=== PATIENT | male | born 1970 | race African-American/Black ===

== ENCOUNTER 2017-12-09 05:13 | Observation (INO) | payer OTHER ==
[~2017-12-09] VITALS: Ht 193 cm; Wt 113.7 kg
[2017-12-09 06:03] LABS: BASOPHIL % 0.4 % (0-2); PLATELET COUNT 210 x10^3mcL (130-400); RED CELL DISTRIBUTION WIDTH 13.2 % (11.5-14.5)
[2017-12-09 06:11] LABS: CALCIUM 8.9 mg/dL (8.5-10.1); CARBON DIOXIDE 30.3 mmol/L (21-32); CHLORIDE SERUM 106 mmol/L (98-107); CREATININE SERUM 1.1 mg/dL (0.7-1.3); GFR1 > 60 mL/min; GLUCOSE SERUM 102 mg/dL (74-106); POTASSIUM SERUM 3.6 mmol/L (3.5-5.1); SODIUM SERUM 140 mmol/L (136-145)
[2017-12-09 06:17] LABS: ALBUMIN 3.5 g/dL (3.4-5.0); ALKALINE PHOSPHATASE 85 U/L (46-116); ALT/SGPT 24 U/L (16-63); AST/SGOT 17 U/L (15-37); BILIRUBIN TOTAL 1.3 mg/dL (0.20-1.00); TOTAL PROTEIN, SERUM 6.8 g/dL (6.4-8.2)
[2017-12-09] MEDS ORDERED: BENAZEPRIL HYDR20 M1 PO (06:48)
[2017-12-09 07:56] VITALS: BP 132/69
[2017-12-09 09:49] LABS: CHOLESTEROL/HDL RATIO 3.3; MAGNESIUM 2.3 mg/dL (1.8-2.4); PHOSPHOROUS 2.7 mg/dL (2.5-4.9)
[2017-12-09 10:07] LABS: FREE T4 1.01 ng/dL (0.76-1.46); T4(THYROXINE) 6.4 ug/dL (4.7-13.3)
[2017-12-09 10:45] VITALS: BP 117/75
[2017-12-09 12:51] LABS: microscopic required? NO
[2017-12-09 13:16] LABS: urine erythrocyte NEGATIVE (NEGATIVE)
[2017-12-09 13:23] LABS: AMPHETAMINE QUAL UR NONE DETECTED (NEG <=1000)
[2017-12-09 13:39] VITALS: BP 120/72
[2017-12-09 17:06] VITALS: BP 122/72
[2017-12-09 21:02] VITALS: BP 132/73
[2017-12-10 05:53] VITALS: BP 131/91
[2017-12-10 06:21] LABS: BASOPHIL % 0.6 % (0-2); PLATELET COUNT 201 x10^3mcL (130-400); RED CELL DISTRIBUTION WIDTH 13.5 % (11.5-14.5)
[2017-12-10 06:27] LABS: CALCIUM 8.6 mg/dL (8.5-10.1); CARBON DIOXIDE 28.6 mmol/L (21-32); CHLORIDE SERUM 108 mmol/L (98-107); CREATININE SERUM 0.9 mg/dL (0.7-1.3); GFR1 > 60 mL/min; GLUCOSE SERUM 90 mg/dL (74-106); PHOSPHOROUS 3.3 mg/dL (2.5-4.9); POTASSIUM SERUM 3.9 mmol/L (3.5-5.1); SODIUM SERUM 142 mmol/L (136-145)
[2017-12-10 10:21] VITALS: BP 134/79
== END 2017-12-10 10:25 | disposition home or self-care (01) | DRG 312 ==
LOC: ED 05:13 → DU 06:53 → EDBEDREQ 06:54 → DU 08:34
PROVIDERS: Emergency Medicine; Family Medicine
DX: R55 Syncope and collapse (principal); I10 Essential (primary) hypertension; E07.9 Disorder of thyroid, unspecified; N20.0 Calculus of kidney; N28.1 Cyst of kidney, acquired; K76.0 Fatty (change of) liver, not elsewhere classified; Z68.30 Body mass index [BMI] 30.0-30.9, adult
CPT/HCPCS: 83880; 84439; G0378; J7030; Q0092